=== PATIENT | female | born 2000 | race Caucasian/White ===

== ENCOUNTER 2019-01-11 18:27 | Emergency (ER) | payer OTHER, SELFPAY ==
[2019-01-11 18:32] VITALS: BP 120/74; PULSE 111; RESP 20; TEMP 38.1; O2SAT 97; BMI 21.6
--- NOTE | 2019-01-11 20:22 | ED_ITS ---
HPI - URI/Sore Throat <OZZY Tong - Last Filed: 01/11/19 21:01> General Chief Complaint: Upper Respiratory Symptoms Stated Complaint: states tonsilitis and fever Time Seen by Provider: 01/11/19 19:14 Source: patient Mode of arrival: ambulatory Limitations: no limitations History of Present Illness HPI Narrative: The patient is a 18-year-old female who presents with a chief complaint of sore throat and fever. This is been going on since . She denies any cough or congestion, but complains of some ear pain. She has used Aleve for pain and fever at home. She is concerned about strep throat or tonsillitis. She denies any difficulty swallowing. She denies any abdominal pain nausea or vomiting. She is not sure whether not she has been around sick people. She complains of bilateral ear pressure. Related Data Previous Rx's Medication Instructions Recorded amoxicillin 875 mg PO BID #20 tab 01/11/19 Allergies Allergy/AdvReac Type Severity Reaction Status Date / Time No Known Drug Allergies Allergy Verified 01/11/19 18:36 Review of Systems <OZZY Tong - Last Filed: 01/11/19 21:01> Review of Systems GENERAL: Denies chills, fatigue, malaise, fever, sweats. HEENT: See HPI RESPIRATORY: Denies dyspnea, cough, wheezing, hemoptysis, sputum. CARDIOVASCULAR: Denies chest pain, palpitations, orthopnea, edema, GASTROINTESTINAL: Denies nausea, vomiting, abdominal pain, diarrhea, constipation, melena. : Denies dysuria, frequency, incontinence, hematuria, urinary retention. MUSCULOSKELETAL: denies weakness, joint pain, or bony pain SKIN: Denies rash, skin lesions, or other NEUROLOGIC: Denies weakness, headache, numbness, change in speech, confusion, seizures, incoordination. PSYCHIATRIC: No concerning psychosocial issues. 12 point review of systems is negative except for those stated above PFSH <OZZY Tong - Last Filed: 01/11/19 21:01> Medical History (Updated 01/11/19 @ 20:46 by OZZY Tong) Family history non-contributory (Acute) Medical history non-contributory (Acute) Social History Smoking Status: Never smoker Social History Smoking Status: Never smoker Exam <OZZY Tong - Last Filed: 01/11/19 21:01> Narrative Exam Narrative: GENERAL: This is a well-nourished, well-developed patient, no acute distress HEAD: Atraumatic. Normocephalic. No temporal or scalp tenderness. EYES: Pupils equal round and reactive. Extraocular motions intact. No scleral icterus. No injection or drainage. ENT: Nose without bleeding, purulent drainage or septal hematoma. Throat with erythema, right-sided exudate, and tonsillar swelling Uvula midline. Airway patent. Bilateral TMs pearly cruz. NECK: Trachea midline. No JVD or lymphadenopathy. Supple, nontender, no meningeal signs. CARDIOVASCULAR: Regular rate and rhythm RESPIRATORY: Clear to auscultation. Breath sounds equal bilaterally. No wheezes, rales, or rhonchi. No cough. No increased respiratory effort. No accessory muscle use. EXTREMITIES: No clubbing, cyanosis, or edema. No joint tenderness, effusion, or edema noted. BACK: Nontender without deformity or crepitance. No flank tenderness. NEURO: AOx3. SKIN: No rash or erythema. Initial Vital Signs Initial Vital Signs: Vital Signs Temperature 100.5 F H 01/11/19 18:32 Pulse Rate 111 H 01/11/19 18:32 Respiratory Rate 20 01/11/19 18:32 Blood Pressure 120/74 01/11/19 18:32 Pulse Oximetry 97 01/11/19 18:32 <Arya Infante DO - Last Filed: 01/11/19 23:25> Initial Vital Signs Initial Vital Signs: Vital Signs Temperature 100.5 F H 01/11/19 18:32 Pulse Rate 111 H 01/11/19 18:32 Respiratory Rate 20 01/11/19 18:32 Blood Pressure 120/74 01/11/19 18:32 Pulse Oximetry 97 01/11/19 18:32 Course <OZYZ Tong - Last Filed: 01/11/19 21:01> Orders Ordered: Discontinued Medications Acetaminophen (Tylenol) 650 mg PO NOW ONE Stop: 01/11/19 19:15 Last Admin: 01/11/19 20:33 Dose: 650 mg Vital Signs - 8 hr 01/11/19 18:32 01/11/19 21:09 Temperature 100.5 F H 99.0 F Pulse Rate 111 H 92 H Respiratory Rate 20 14 Blood Pressure 120/74 113/69 Pulse Oximetry 97 98 <Arya Infante DO - Last Filed: 01/11/19 23:25> Orders Ordered: Discontinued Medications Acetaminophen (Tylenol) 650 mg PO NOW ONE Stop: 01/11/19 19:15 Last Admin: 01/11/19 20:33 Dose: 650 mg Vital Signs - 8 hr 01/11/19 18:32 01/11/19 21:09 Temperature 100.5 F H 99.0 F Pulse Rate 111 H 92 H Respiratory Rate 20 14 Blood Pressure 120/74 113/69 Pulse Oximetry 97 98 MDM - URI/Sore Throat <GARRETT Tong-CHAS - Last Filed: 01/11/19 21:01> Lab Data Point of Care Testing Rapid Strep A Negative MDM Narrative Medical decision making narrative: The patient is a 18-year-old female presents with sore throat and fever. She tested negative for strep, but given her exam I will treat her for tonsillitis with amoxicillin. I discussed at length monitor for signs and symptoms of infection. Encouraged [id number] medications. Patient has no questions or concerns upon discharge. Discussed coming back to the ER for any acute concerns such as respiratory difficulties. <Arya Infante DO - Last Filed: 01/11/19 23:25> Lab Data Point of Care Testing Rapid Strep A Negative Discharge Plan Departure Patient Disposition: Home Clinical Impression: Acute bacterial tonsillitis Discharge Date/Time: 01/11/19 21:10 Interventions: ED Discharge Assessment Last Done: 01/11/19 21:09 Instructions: DI for Pharyngitis/Tonsillopharyngitis -- Adult Activity Restrictions/Additional Instructions: Given your exam, we have elected to treat you for a bacterial infection. Please follow up with primary care provider. Please use [id number] medications as needed and able. Please come back to the emergency department for any acute concerns. Please follow up for worsening or lack of improvement. Prescriptions: New amoxicillin 875 mg tablet 875 mg PO BID Qty: 20 RF: 0 Referrals: [facility] [facility] [Provider Group] <Arya Infante, DO - Last Filed: 01/11/19 23:25> Cosign ED Attending Kiko Attestation: I was available for consultation during this patient's emergency department encounter
[2019-01-11] MEDS: ACETAMINOPHEN 325 MG TABLET 650 MG PO (20:33)
[2019-01-11 21:09] VITALS: BP 113/69; PULSE 92; RESP 14; TEMP 37.2; O2SAT 98
== END 2019-01-11 21:10 | disposition home or self-care (01) ==
PROVIDERS: Emergency Provider Nurse Practitioner Family
DX: J03.80 Acute tonsillitis due to other specified organisms (principal)
CPT/HCPCS: 87880; 99282; 99283